=== PATIENT | male | born 1970 | race Caucasian/White ===

== ENCOUNTER 2017-12-23 03:45 | Inpatient (IN) | payer OTHER, SELFPAY ==
[2017-12-23] VITALS (17 sets, daily range): BP systolic 111–147; BP diastolic 62–85; PULSE 76–122; RESP 16–26; TEMP 37.4–40.4; O2SAT 92–100; BMI 20.6; BMI 20.4
--- NOTE | 2017-12-23 04:11 | CT_ITS ---
STUDY: CT ABDOMEN AND PELVIS WITHOUT CONTRAST REASON FOR EXAM: Male, 47 years old. Fever RADIATION DOSAGE (If Supplied By Facility): CTDIvol = ( 6.10 ) mGy, DLP = ( 300.26 ) mGycm TECHNIQUE: Transaxial images were obtained from the dome of the diaphragm to the symphysis pubis without oral contrast, and without intravenous contrast. Sagittal and coronal images were reconstructed. Individualized dose optimization techniques were used for this CT. COMPARISON: None. FINDINGS: The visualized lung bases are unremarkable. The visualized portions of the heart are within normal limits. Normal liver. Normal gallbladder and extrahepatic biliary system. Normal spleen. Normal pancreas. Normal bilateral adrenal glands. Normal right kidney. There is a 4 cm cyst in the midpole of the LEFT kidney. There are NO kidney stones or ureteral stones. There is NO hydronephrosis. Normal visualized stomach. Normal small intestine. Normal colon. The appendix is visualized and appears normal. Normal abdominal aorta. Normal inferior vena cava. Normal retroperitoneum. Normal urinary bladder. There are tiny phleboliths in the pelvis. There is NO ascites or free air, abscess or adenopathy. Normal abdominal wall. Normal osseous structures. CT/Abdomen/Pelvis without Cont IMPRESSION: There is a 4 cm cyst in the midpole of the LEFT kidney. There are NO kidney stones or ureteral stones. There is NO hydronephrosis. Normal visualized stomach. Normal small intestine. Normal colon. The appendix is visualized and appears normal. There are tiny phleboliths in the pelvis. There is NO ascites or free air, abscess or adenopathy. Electronically Signed: Jayy Baxter MD at 5:33 EST , Service support ,
[2017-12-23] MEDS: Ibuprofen 200 MG Tablet 400 MG PO (04:15)
[2017-12-23] MEDS: 0.9% Normal Saline 1,000 ML 1000 ML IV (04:16)
[2017-12-23 04:33] LABS: Anion Gap 7 (5-15); BUN 18 mg/dL (7-18); BUN/Creat Ratio 22.7 RATIO (10-20); Calcium,Total 8.5 mg/dL (8.5-10.1); Chloride 103 mmol/L (98-107); Creatinine, Serum 0.79 mg/dL (0.70-1.30); EST Glomerular Filtration Rate 110 mL/min (>60); Est Glom Filt Rate - Afr Amer 133 mL/min (>60); Estimated Creatinine Clearance 119.99 ml/min; Glucose 112 mg/dL (74-106); Potassium 3.6 mmol/L (3.5-5.1); Sodium Level 137 mmol/L (136-145)
[2017-12-23 04:34] LABS: Bacteria 0 SEEN /hpf (None Seen); Mucous, Urine 0 SEEN /hpf (<or=2+); Squamous Epithelial Cells - UA 0 SEEN /hpf (0-5)
[2017-12-23 04:36] LABS: Color, Urine Amber (Yellow); Glucose, Dipstick Normal (Normal); Leukocyte Esterase-Dipstick 500 /ul (Negative); Nitrite-Dipstick Negative (Negative); Occult Blood-Urine 25 /ul (Negative); Protein-Dipstick 30 mg/dl (Negative); Specific Gravity, Urine 1.015 (1.002-1.030); Urine Clarity Sl. Cloudy (Clear); Urine Urobilinogen 4 mg/dl (Normal); Urine pH 6.5 (5.0 - 8.0)
[2017-12-23 04:40] LABS: Lactic Acid 0.7 mmol/L (0.4-2.0)
[2017-12-23 04:41] LABS: Absolute Lymphocyte Count 0.26 X10^3/ul (0.83-4.51); Absolute Neutrophil Count 8.8 X10^3/uL (2.0-7.7); Basophil# 0.02 X10^3/uL; Basophil% 0.2 % (0-1); Hematocrit 43.8 % (40-54); Hemoglobin 14.2 g/dl (13.0-16.5); Lymphocyte # 0.26 X10^3/ul (4.0); Lymphocyte % 2.8 % (19-41); Mean Corp Hgb Conc 32.4 g/gl (32-36); Mean Corpuscular Hgb 27.8 pg (27.0-32.0); Mean Corpuscular Volume 85.7 fL (80-94); Mean Platelet Vol. 11.9 fl (6.2-12.0); Monocyte# 0.26 X10^3/uL; Monocyte% 2.8 % (0-10); Neutrophil # 8.76 X10^3/uL (2.7-7.7); Neutrophil % 94.2 % (47-70); Platelet Count 98 K/mm3 (150-450); RBC Distribution Width CV 13.3 % (11.6-14.6); RBC Distribution Width SD 40.8 fl (35.1-43.9); Red Blood Count 5.11 M/mm3 (4.6-6.2); White Blood Count 9.3 K/mm3 (4.4-11.0)
[2017-12-23 04:43] LABS: Differential Indicated SCAN CRITERIA MET; POSITIVE COUNT NO; POSITIVE DIFFERENTIAL YES; POSITIVE MORPHOLOGY NO
[2017-12-23 04:43] LABS: Urine Bilirubin Dipstick 1 mg/dL (Negative)
[2017-12-23 04:44] LABS: Ketone-Dipstick 150 mg/dl (Negative); Red Blood Cells-Urine 0-5 SEEN /hpf (0-5); White Blood Cells 25-50 SEEN /hpf (0-5)
--- NOTE | 2017-12-23 05:53 | ED.VISSUMM ---
- ER Visit Summary Date of Service: 12/23/17 Chief Complaint: Possible kidney infection History of Present Illness: The patient is a 47 M who reports abdominal pain nausea and vomiting. He became ill yesterday. He noticed urinary urgency and frequency. He also developed aching lower back pain and some very mild left lower quadrant abdominal pain which is sharp. He rates this as 1-2 out of 10. Overnight he developed a temperature up to 104.1. He also complains of generalized malaise and fatigue. He complains of a headache but does have a history of migraines and this feels similar. He had 2 episodes of nonbloody nonbilious emesis last night. Physical Examination: Heart rate 111 temperature 103.5 respiratory rate 22 pulse ox 93% Moist mucous membranes Heart regular rhythm tachycardia Lungs are clear Abdomen soft there is no reproducible tenderness he is nondistended Alert Test Results: Laboratory studies notable for platelet count 98 lactic acid is normal. No leukocytosis. Urine shows 500 leukocyte esterase 150 ketones 25-[address] of the flank shows a 4 cm left renal cyst but otherwise normal. Emergency Department Course and Treatment: She was given ibuprofen for fever and IV fluids. He was given IV Zosyn. Given high fever tachycardia vomiting I do believe he has pyelonephritis. Blood and urine cultures were also obtained. Patient was discussed with the hospitalist and admitted. Treatment Plan: [] Disposition: Admit Impression: Pyelonephritis This note was generated with [employer] dictation software. It may contain incorrect words, spelling, and punctuation that were not noted in review of the chart prior to signing ED Disposition - Plan for ED Patient: Chief Complaint: Abd Pain Referrals: Kai Sherman MD [Primary Care Provider] -
--- NOTE | 2017-12-23 06:07 | HP.PCM_ITS ---
Problem List (1) Sepsis Status: Acute (2) Acute cystitis Status: Acute History of Present Illness Date of Admission: 12/23/17 Chief Complaint: Suprapubic abdominal pain, frequency and fever. The patient is a 47 year old M with no significant past medical history presented to the emergency room because of suprapubic abdominal pain, frequency and fever. Symptoms started yesterday with frequency associated with weakness and fever of up to 104 Fahrenheit as well as rigors and chills. Today, he started complaining of suprapubic abdominal pain, dull aching pain, 2-3 out of 10 in severity, not radiating, associated with nausea and vomiting as well as continued to have significant frequency and dark colored urine and without aggravating or relieving factors for this pain. He denies chest pain or shortness of breath. Denied cough or sputum production. He denied past history of UTI or kidney stones. In the emergency room, patient was febrile, tachycardic, blood pressure stable and heart rate stable as well. His pulse ox was normal and he was tachypneic. His routine blood work was unremarkable. Lactic acid was normal. Urinalysis revealed cloudy urine, positive for leukocyte esterase, there was 25-50 WBCs and no bacteria seen. CT scan abdomen and pelvis without contrast revealed left kidney cyst, no stones, no hydronephrosis, normal right kidney, normal intestine, normal colon, normal appendix, no acute intra-abdominal pathology. He is being admitted for acute cystitis with sepsis. Past Medical History Allergies No Known Allergies Allergy (Verified 12/23/17 03:50) Home Medications: Ambulatory Orders Medication Instructions Recorded NK [NK] 12/23/17 Surgical History: herniorrhaphy Psychiatric History: No pertinent psych hx Lives: Spouse/ Significant Other Smoking Status: Never smoker Alcohol: None Drugs: None - *Family History Maternal History Items: No pertinent history Paternal History Items: No pertinent history Review of Systems Constitutional: Reports: Anorexia, Chills, Fever, Weakness, Fatigue Eyes: Denies: Blurred vision, Double vision, Drainage, Redness HEENT: Denies: Difficulty Hearing, Ear Pain, Eye Pain, Nasal Congestion, Sore Throat Cardiovascular: Denies: Chest Pain, Chest Pressure, Edema, Heaviness, Palpitations, Syncope Respiratory: Denies: Cough, Hemoptysis, Pleuritic Pain, Shortness of Breath, Sputum production Gastrointestinal: Reports: Abdominal Pain, Nausea, Vomiting. Denies: Constipation, Diarrhea Genitourinary: Reports: Frequency, Urgency. Denies: Dysuria, Hematuria Musculoskeletal: Denies: Arm Pain, Back Pain, Foot Pain Skin: Denies: Dryness, Rash Neurological: Denies: Balance problems, Double vision, Change in Speech, Slurred speech, Headaches, Incoordination, Numbness Psychiatric: Denies: Anxiety, Depression Endocrine: Denies: Change in Body Habitus, Polydipsia VTE Information - Inpt Only VTE Present on Admission: No VTE Mechan Device Prophylaxis: None VTE Pharm Prophylaxis ordered?: No Patient Problems: Active and Suspected Problems Sepsis (Acute) Acute cystitis (Acute) - Physical Exam General: Alert, Oriented x3, Cooperative, No apparent distress HEENT: Atraumatic, PERRLA, EOMI Oral: Moist Mucosa, No Gingival or Mucosal Lesions/ Ulcerations Neck: Supple, No JVD, Negative Carotid Bruits, Trachea Midline, Thyroid Normal Size and Texture Lungs: Clear to auscultation, Normal air movement, No rhonchi, No wheeze, No rales Cardiovascular: Regular rate, Regular Rhythm, Normal S1, Normal S2, No murmurs, PMI Normal, Tachycardic Abdomen: Bowel Sounds Present, Soft, Non Tender, Non-Distended, No Hepato- splenomegaly Extremities: No clubbing, No cyanosis, No edema Skin: No rashes, No breakdown Lymphatic: No Cervical, Supraclavicular, or Inguinal Adenopathy Neurological: Cranial nerves II-XII grossly intact, Motor Exam 5/5 strength throughout Psych/Mental Status: Normal Affect, Appropriate, Alert and oriented to time, place, person, mood and affect Vital Signs Temp Pulse Resp BP Pulse Ox 100.2 F H 101 H 21 H 115/83 H 95 12/23/17 05:29 12/23/17 05:29 12/23/17 05:29 12/23/17 05:29 12/23/17 05:29 Oxygen Delivery Method Room Air Weight: 165 lb 5.547 oz Body Mass Index (BMI) 20.6 Laboratory Tests Past 24 Hrs 12/23/17 12/23/17 12/23/17 03:50 03:50 03:50 WBC 9.3 RBC 5.11 Hgb 14.2 Hct 43.8 MCV 85.7 MCH 27.8 MCHC 32.4 RDW 13.3 RDW Differential 40.8 Plt Count 98 L MPV 11.9 Immature Gran % (Auto) 0.000 Neut % (Auto) 94.2 H Lymph % (Auto) 2.8 L [place] % (Auto) 2.8 Eos % (Auto) 0.0 Baso % (Auto) 0.2 Absolute Neuts (auto) 8.8 H Absolute Lymphs (auto) 0.26 L Total Counted Not Reportable Sodium 137 Potassium 3.6 Chloride 103 Carbon Dioxide 27.0 Anion Gap 7 BUN 18 Creatinine 0.79 Estim Creat Clear Calc 119.99 Est GFR (MDRD) Af Amer 133 Est GFR (MDRD) Non-Af 110 BUN/Creatinine Ratio 22.7 H Glucose 112 H Lactic Acid 0.7 Calcium 8.5 Urine Color Urine Clarity Urine pH Ur Specific [place] Urine Protein Urine Glucose (UA) Urine Ketones Urine Occult Blood Urine Nitrite Urine Bilirubin Urine Urobilinogen Ur Leukocyte Esterase Urine RBC Urine WBC Ur Squamous Epith Cells Urine Bacteria Urine Mucus 12/23/17 04:29 WBC RBC Hgb Hct MCV MCH MCHC RDW RDW Differential Plt Count MPV Immature Gran % (Auto) Neut % (Auto) Lymph % (Auto) [place] % (Auto) Eos % (Auto) Baso % (Auto) Absolute Neuts (auto) Absolute Lymphs (auto) Total Counted Sodium Potassium Chloride Carbon Dioxide Anion Gap BUN Creatinine Estim Creat Clear Calc Est GFR (MDRD) Af Amer Est GFR (MDRD) Non-Af BUN/Creatinine Ratio Glucose Lactic Acid Calcium Urine Color [place] Urine Clarity Sl. Cloudy Urine pH 6.5 Ur Specific [place] 1.015 Urine Protein 30 H Urine Glucose (UA) Normal Urine Ketones 150 H Urine Occult Blood 25 H Urine Nitrite Negative Urine Bilirubin 1 H Urine Urobilinogen 4 H Ur Leukocyte Esterase 500 H Urine RBC 0-5 SEEN Urine WBC 25-50 SEEN Ur Squamous Epith Cells 0 SEEN Urine Bacteria 0 SEEN Urine Mucus 0 SEEN Clinical Impression(s) from Imaging Studies Abdomen/Pelvis CT 12/23/17 04:11 IMPRESSION: There is a 4 cm cyst in the midpole of the LEFT kidney. There are NO kidney stones or ureteral stones. There is NO hydronephrosis. Normal visualized stomach. Normal small intestine. Normal colon. The appendix is visualized and appears normal. There are tiny phleboliths in the pelvis. There is NO ascites or free air, abscess or adenopathy. Electronically Signed: Jayy Baxter MD at 5:33 EST , Service support , Assessment/Plan Active and Suspected Problems Sepsis (Acute) Acute cystitis (Acute) This is a 47 years old male patient admitted because of frequency, weakness, fever and suprapubic abdominal pain, found to have acute cystitis with sepsis. #1 acute cystitis/sepsis: Patient is febrile, tachycardic and tachypneic. Lactic acid is normal. At this time, blood pressure on the hospital stable. Routine blood work was unremarkable. CT scan abdomen and pelvis revealed left renal cyst, otherwise no acute intra-abdominal pathology. Plan: Admit to MedSurg, IV fluids, start IV Zosyn, blood culture, urine culture, Tylenol as needed, antiemetics as needed, repeat CBC and BMP tomorrow morning. At this time, bacteremia is a possible diagnosis because patient complained of significant right present chills. #2 DVT prophylaxis: Low risk patient, no prophylaxis indicated. This note was generated with [employer] dictation software. It may contain incorrect words, spelling, and punctuation that were not noted in checking the note before signing. Code Visit Inpatient E&M: 96633 Init Hosp L3
[2017-12-23] MEDS: 0.9% Normal Saline 1,000 ML 100 ML IV ×2 (06:30→16:35)
--- NOTE | 2017-12-23 09:12 | PCM.PN.HOSP ---
Patient Problems: Active and Suspected Problems Sepsis (Acute) Acute cystitis (Acute) Subjective: Feeling better. Does complain of a headache. States that he gets headaches every few months and this feels like his typical migraine. Patient does endorse a drinks around 24 ounces of coffee per day. Patient denies ever having had a urinary tract infection before, denies any flank pain, denies any sexually transmitted diseases. It is his urinary frequency is slightly improved and his urine output has improved since this all began. Denies, when he is feeling healthy, nocturia or frequency. Vitals/I&O's: Vital Signs Temp Pulse Resp BP Pulse Ox 37.4 C H 76 16 135/81 H 99 12/23/17 07:02 12/23/17 07:02 12/23/17 07:02 12/23/17 07:02 12/23/17 07:02 Oxygen Delivery Method Room Air Weight: 74.2 kg Body Mass Index (BMI) 20.4 General: Alert, Cooperative, No apparent distress HEENT: Atraumatic Oral: Moist Mucosa, No Gingival or Mucosal Lesions/ Ulcerations Neck: No Nodes, Thyroid Normal Size and Texture, - - no meningismus Lungs: Clear to auscultation, Normal air movement, No rhonchi, No wheeze Cardiovascular: Regular rate, Regular Rhythm, Normal S1, Normal S2, No murmurs Abdomen: Bowel Sounds Present, Soft, Non Tender, Non-Distended, No Hepato-splenomegaly, - - No costovertebral angle tenderness Extremities: No edema, No Calf Tenderness Psych/Mental Status: Normal Affect, Appropriate Current Medications Acetaminophen (Tylenol) 650 mg PO Q6H PRN PRN PRN Reason: Fever, headache, pain Ciprofloxacin HCl (Cipro) 500 mg PO BID [facility] Sodium Chloride () 1,000 mls @ 100 mls/hr IV .Q10H [facility] Last Admin: 12/23/17 06:30 Dose: 100 mls/hr Ibuprofen (Motrin) 600 mg PO Q6H PRN PRN PRN Reason: MILD PAIN (1-3/10) Morphine Sulfate (Morphine) 1 mg IV Q4H PRN PRN PRN Reason: SEVERE PAIN (6-10/10) Ondansetron HCl (Zofran) 4 mg IV Q6H PRN PRN PRN Reason: NAUSEA/VOMITING Sodium Chloride () 5 - 30 ml IV UD PRN PRN Reason: SALINE FLUSH Assessment/Plan Active and Suspected Problems Sepsis (Acute) Acute cystitis (Acute) 1. UTI: Patient never had a UTI before. Patient urinalysis was equivocal but patient was clinically septic with high fevers. Minute discontinue the patient Zosyn and start him on oral ciprofloxacin. Patient does well then I feel patient can be discharged later on today. Code Visit Procedures: Other Procedure - See Report - non-billable rounding.
--- NOTE | 2017-12-23 09:15 | PN_ITS ---
Patient Problems: Active and Suspected Problems Sepsis (Acute) Acute cystitis (Acute) Subjective: Feeling better. Does complain of a headache. States that he gets headaches every few months and this feels like his typical migraine. Patient does endorse a drinks around 24 ounces of coffee per day. Patient denies ever having had a urinary tract infection before, denies any flank pain, denies any sexually transmitted diseases. It is his urinary frequency is slightly improved and his urine output has improved since this all began. Denies, when he is feeling healthy, nocturia or frequency. Vitals/I&O's: Vital Signs Temp Pulse Resp BP Pulse Ox 37.4 C H 76 16 135/81 H 99 12/23/17 07:02 12/23/17 07:02 12/23/17 07:02 12/23/17 07:02 12/23/17 07:02 Oxygen Delivery Method Room Air Weight: 74.2 kg Body Mass Index (BMI) 20.4 General: Alert, Cooperative, No apparent distress HEENT: Atraumatic Oral: Moist Mucosa, No Gingival or Mucosal Lesions/ Ulcerations Neck: No Nodes, Thyroid Normal Size and Texture, - - no meningismus Lungs: Clear to auscultation, Normal air movement, No rhonchi, No wheeze Cardiovascular: Regular rate, Regular Rhythm, Normal S1, Normal S2, No murmurs Abdomen: Bowel Sounds Present, Soft, Non Tender, Non-Distended, No Hepato- splenomegaly, - - No costovertebral angle tenderness Extremities: No edema, No Calf Tenderness Psych/Mental Status: Normal Affect, Appropriate Current Medications Acetaminophen (Tylenol) 650 mg PO Q6H PRN PRN PRN Reason: Fever, headache, pain Ciprofloxacin HCl (Cipro) 500 mg PO BID [facility] Sodium Chloride () 1,000 mls @ 100 mls/hr IV .Q10H [facility] Last Admin: 12/23/17 06:30 Dose: 100 mls/hr Ibuprofen (Motrin) 600 mg PO Q6H PRN PRN PRN Reason: MILD PAIN (1-3/10) Morphine Sulfate (Morphine) 1 mg IV Q4H PRN PRN PRN Reason: SEVERE PAIN (6-10/10) Ondansetron HCl (Zofran) 4 mg IV Q6H PRN PRN PRN Reason: NAUSEA/VOMITING Sodium Chloride () 5 - 30 ml IV UD PRN PRN Reason: SALINE FLUSH Assessment/Plan Active and Suspected Problems Sepsis (Acute) Acute cystitis (Acute) 1. UTI: * Patient never had a UTI before. Patient urinalysis was equivocal but patient was clinically septic with high fevers. Minute discontinue the patient Zosyn and start him on oral ciprofloxacin. Patient does well then I feel patient can be discharged later on today. Code Visit Procedures: Other Procedure - See Report - non-billable rounding.
[2017-12-23] MEDS: Ciprofloxacin 500 MG Tablet PO (11:22)
[2017-12-23] MEDS: Ibuprofen 600 MG Tablet PO ×2 (11:29→17:37)
[2017-12-23] MEDS: Acetaminophen 325 MG Tablet 650 MG PO ×2 (13:30→19:31)
[2017-12-23] MEDS: Ciprofloxacin 400 MG/200 ML BAG 200 MG IV (21:29)
[2017-12-24] VITALS (10 sets, daily range): BP systolic 111–148; BP diastolic 54–88; PULSE 75–87; RESP 14–18; TEMP 36.7–37.9; O2SAT 98–100
[2017-12-24] MEDS: 0.9% Normal Saline 1,000 ML 100 ML IV ×2 (02:58→14:45)
[2017-12-24] MEDS: Acetaminophen 325 MG Tablet 650 MG PO ×3 (02:59→17:11)
[2017-12-24 07:02] LABS: Absolute Lymphocyte Count 0.28 X10^3/ul (0.83-4.51); Absolute Neutrophil Count 5.6 X10^3/uL (2.0-7.7); Basophil# 0.01 X10^3/uL; Basophil% 0.2 % (0-1); Hematocrit 38.3 % (40-54); Hemoglobin 12.2 g/dl (13.0-16.5); Lymphocyte # 0.28 X10^3/ul (4.0); Lymphocyte % 4.4 % (19-41); Mean Corp Hgb Conc 31.9 g/gl (32-36); Mean Corpuscular Hgb 27.7 pg (27.0-32.0); Mean Platelet Vol. 11.7 fl (6.2-12.0); Monocyte# 0.38 X10^3/uL; Neutrophil # 5.63 X10^3/uL (2.7-7.7); Neutrophil % 89.2 % (47-70); Platelet Count 64 K/mm3 (150-450); RBC Distribution Width CV 13.4 % (11.6-14.6); White Blood Count 6.3 K/mm3 (4.4-11.0)
[2017-12-24 07:12] LABS: Anion Gap 6 (5-15); BUN 14 mg/dL (7-18); BUN/Creat Ratio 23.8 RATIO (10-20); Calcium,Total 7.6 mg/dL (8.5-10.1); Chloride 105 mmol/L (98-107); Creatinine, Serum 0.59 mg/dL (0.70-1.30); EST Glomerular Filtration Rate 156 mL/min (>60); Est Glom Filt Rate - Afr Amer 188 mL/min (>60); Estimated Creatinine Clearance 158.95 ml/min; Glucose 143 mg/dL (74-106); Potassium 3.6 mmol/L (3.5-5.1); Sodium Level 137 mmol/L (136-145)
[2017-12-24 07:14] LABS: Differential Indicated SCAN CRITERIA MET; POSITIVE COUNT NO; POSITIVE DIFFERENTIAL YES; POSITIVE MORPHOLOGY NO
[2017-12-24] MEDS: Ciprofloxacin 400 MG/200 ML BAG 200 MG IV ×2 (09:03→21:05)
--- NOTE | 2017-12-24 09:05 | PCM.PN.HOSP ---
Patient Problems: Active and Suspected Problems Sepsis (Acute) Acute cystitis (Acute) Subjective: Still with fevers yesterday up to 40?C. Patient states that his dysuria has resolved and is urinary stream has returned back to normal. No shortness of breath, no sinus congestion. Vitals/I&O's: Vital Signs Temp Pulse Resp BP Pulse Ox 37.3 C 80 14 111/54 L 99 12/24/17 02:54 12/24/17 08:07 12/24/17 02:54 12/24/17 02:54 12/24/17 02:54 Oxygen Delivery Method Room Air Weight: 74.2 kg Body Mass Index (BMI) 20.4 Intake and Output for Last 24 Hours 12/22/17 12/23/17 12/24/17 23:59 23:59 23:59 Intake Total 3265 / 3265 Output Total 525 / 525 Balance 2740 / 2740 General: Alert, Cooperative, No apparent distress, Well developed, Well nourished HEENT: Atraumatic, Normocephalic Neck: No Nodes, Thyroid Normal Size and Texture Lungs: Clear to auscultation, Normal air movement, No rhonchi, No wheeze Cardiovascular: Regular rate, Regular Rhythm, Normal S1, Normal S2, No murmurs Abdomen: Bowel Sounds Present, Soft, Non Tender, Non-Distended, No Hepato-splenomegaly Extremities: No edema, No Calf Tenderness Skin: No rashes, No breakdown Musculoskeletal: No Tenderness to Palpation of Joints or Extremities, No Muscle Wasting Psych/Mental Status: Normal Affect, Appropriate Laboratory Results 12/24/17 06:20: WBC 6.3, RBC 4.40 L, Hgb 12.2 L, Hct 38.3 L, MCV 87.0, MCH 27.7, MCHC 31.9 L, RDW 13.4, RDW Differential 43.0, Plt Count 64 L, MPV 11.7, Immature Gran % (Auto) 0.200, Neut % (Auto) 89.2 H, Lymph % (Auto) 4.4 L, [place] % (Auto) 6.0, Eos % (Auto) 0.0, Baso % (Auto) 0.2, Absolute Neuts (auto) 5.6, Absolute Lymphs (auto) 0.28 L, Total Counted Not Reportable 12/24/17 06:20: Sodium 137, Potassium 3.6, Chloride 105, Carbon Dioxide 26.0, Anion Gap 6, BUN 14, Creatinine 0.59 L, Estim Creat Clear Calc 158.95, Est GFR (MDRD) Af Amer 188, Est GFR (MDRD) Non-Af 156, BUN/Creatinine Ratio 23.8 H, Glucose 143 H, Calcium 7.6 L Current Medications Acetaminophen (Tylenol) 650 mg PO Q6H PRN PRN PRN Reason: Fever, headache, pain Last Admin: 12/24/17 09:02 Dose: 650 mg Sodium Chloride () 1,000 mls @ 100 mls/hr IV .Q10H [facility] Last Admin: 12/24/17 02:58 Dose: 100 mls/hr Ciprofloxacin (Cipro) 400 mg in 200 mls @ 200 mls/hr IV Q12 [facility] Last Admin: 12/24/17 09:03 Dose: 200 mls/hr Ibuprofen (Motrin) 600 mg PO Q6H PRN PRN PRN Reason: MILD PAIN (1-3/10) Last Admin: 12/23/17 17:37 Dose: 600 mg Morphine Sulfate (Morphine) 1 mg IV Q4H PRN PRN PRN Reason: SEVERE PAIN (6-10/10) Ondansetron HCl (Zofran) 4 mg IV Q6H PRN PRN PRN Reason: NAUSEA/VOMITING Sodium Chloride () 5 - 30 ml IV UD PRN PRN Reason: SALINE FLUSH Assessment/Plan Active and Suspected Problems Sepsis (Acute) Acute cystitis (Acute) 1. UTI: Patient never had a UTI before. Patient urinalysis was equivocal but patient was clinically septic with high fevers. Continue with Cipro 2. Fevers Still had a fevers yesterday after antibiotics. Blood and urine cultures still negative thus far. Given his high fevers, I will consult infectious disease for further input. 3. DVT prophylaxis with low molecular weight heparin. Code Visit Inpatient E&M: 58429 Subs Hosp L2
--- NOTE | 2017-12-24 09:09 | PN_ITS ---
Patient Problems: Active and Suspected Problems Sepsis (Acute) Acute cystitis (Acute) Subjective: Still with fevers yesterday up to 40?C. Patient states that his dysuria has resolved and is urinary stream has returned back to normal. No shortness of breath, no sinus congestion. Vitals/I&O's: Vital Signs Temp Pulse Resp BP Pulse Ox 37.3 C 80 14 111/54 L 99 12/24/17 02:54 12/24/17 08:07 12/24/17 02:54 12/24/17 02:54 12/24/17 02:54 Oxygen Delivery Method Room Air Weight: 74.2 kg Body Mass Index (BMI) 20.4 Intake and Output for Last 24 Hours 12/22/17 12/23/17 12/24/17 23:59 23:59 23:59 Intake Total 3265 / 3265 Output Total 525 / 525 Balance 2740 / 2740 General: Alert, Cooperative, No apparent distress, Well developed, Well nourished HEENT: Atraumatic, Normocephalic Neck: No Nodes, Thyroid Normal Size and Texture Lungs: Clear to auscultation, Normal air movement, No rhonchi, No wheeze Cardiovascular: Regular rate, Regular Rhythm, Normal S1, Normal S2, No murmurs Abdomen: Bowel Sounds Present, Soft, Non Tender, Non-Distended, No Hepato- splenomegaly Extremities: No edema, No Calf Tenderness Skin: No rashes, No breakdown Musculoskeletal: No Tenderness to Palpation of Joints or Extremities, No Muscle Wasting Psych/Mental Status: Normal Affect, Appropriate Laboratory Results 12/24/17 06:20: WBC 6.3, RBC 4.40 L, Hgb 12.2 L, Hct 38.3 L, MCV 87.0, MCH 27.7 , MCHC 31.9 L, RDW 13.4, RDW Differential 43.0, Plt Count 64 L, MPV 11.7, Immature Gran % (Auto) 0.200, Neut % (Auto) 89.2 H, Lymph % (Auto) 4.4 L, [place] % (Auto) 6.0, Eos % (Auto) 0.0, Baso % (Auto) 0.2, Absolute Neuts (auto) 5.6, Absolute Lymphs (auto) 0.28 L, Total Counted Not Reportable 12/24/17 06:20: Sodium 137, Potassium 3.6, Chloride 105, Carbon Dioxide 26.0, Anion Gap 6, BUN 14, Creatinine 0.59 L, Estim Creat Clear Calc 158.95, Est GFR ( MDRD) Af Amer 188, Est GFR (MDRD) Non-Af 156, BUN/Creatinine Ratio 23.8 H, Glucose 143 H, Calcium 7.6 L Current Medications Acetaminophen (Tylenol) 650 mg PO Q6H PRN PRN PRN Reason: Fever, headache, pain Last Admin: 12/24/17 09:02 Dose: 650 mg Sodium Chloride () 1,000 mls @ 100 mls/hr IV .Q10H [facility] Last Admin: 12/24/17 02:58 Dose: 100 mls/hr Ciprofloxacin (Cipro) 400 mg in 200 mls @ 200 mls/hr IV Q12 [facility] Last Admin: 12/24/17 09:03 Dose: 200 mls/hr Ibuprofen (Motrin) 600 mg PO Q6H PRN PRN PRN Reason: MILD PAIN (1-3/10) Last Admin: 12/23/17 17:37 Dose: 600 mg Morphine Sulfate (Morphine) 1 mg IV Q4H PRN PRN PRN Reason: SEVERE PAIN (6-10/10) Ondansetron HCl (Zofran) 4 mg IV Q6H PRN PRN PRN Reason: NAUSEA/VOMITING Sodium Chloride () 5 - 30 ml IV UD PRN PRN Reason: SALINE FLUSH Assessment/Plan Active and Suspected Problems Sepsis (Acute) Acute cystitis (Acute) 1. UTI: * Patient never had a UTI before. Patient urinalysis was equivocal but patient was clinically septic with high fevers. * Continue with Cipro 2. Fevers * Still had a fevers yesterday after antibiotics. * Blood and urine cultures still negative thus far. * Given his high fevers, I will consult infectious disease for further input. 3. DVT prophylaxis with low molecular weight heparin. Code Visit Inpatient E&M: 56705 Subs Hosp L2
--- NOTE | 2017-12-24 13:11 | CASEMGMT ---
See RN CM assessment. DC PLAN: home
--- NOTE | 2017-12-24 14:32 | CON.PCM_ITS ---
Problem List (1) Bacteremia due to Gram-negative bacteria Status: Acute Reason for Consult: (+) bcx Consulted by: Dr. Simpson History of Present Illness: The patient is a 47 year old M who presented 12/23 with one day history of urinary frequency, dysuria, nausea, back pain, and fever/chills/shakes. Sx 1st started with increased frequency. No prior UTI or kidney stones. No known inciting events. Did have poison devang last week and did get it on his genitals, but that is nearly resolved. Sx rapidly progressed, came to ED, bcx and ucx sent. Started on cipro. Fever up to 103.5. Feeling better now. Full ROS performed and neg except as noted above. - Medical History Allergies/Adverse Reactions: Allergies No Known Allergies Allergy (Verified 12/23/17 03:50) Home Medications: Ambulatory Orders Medication Instructions Recorded NK [NK] 12/23/17 - Social History Tobacco Use: non-smoker Vital Signs Temp Pulse Resp BP Pulse Ox 99.1 F 84 18 121/74 H 98 12/24/17 09:05 12/24/17 13:07 12/24/17 09:05 12/24/17 09:05 12/24/17 09:05 Oxygen Delivery Method Room Air Weight: 74.2 kg Body Mass Index (BMI) 20.4 Laboratory Tests Past 24 Hrs 12/24/17 12/24/17 06:20 06:20 WBC 6.3 RBC 4.40 L Hgb 12.2 L Hct 38.3 L MCV 87.0 MCH 27.7 MCHC 31.9 L RDW 13.4 RDW Differential 43.0 Plt Count 64 L MPV 11.7 Immature Gran % (Auto) 0.200 Neut % (Auto) 89.2 H Lymph % (Auto) 4.4 L [place] % (Auto) 6.0 Eos % (Auto) 0.0 Baso % (Auto) 0.2 Absolute Neuts (auto) 5.6 Absolute Lymphs (auto) 0.28 L Total Counted Not Reportable Sodium 137 Potassium 3.6 Chloride 105 Carbon Dioxide 26.0 Anion Gap 6 BUN 14 Creatinine 0.59 L Estim Creat Clear Calc 158.95 Est GFR (MDRD) Af Amer 188 Est GFR (MDRD) Non-Af 156 BUN/Creatinine Ratio 23.8 H Glucose 143 H Calcium 7.6 L - Other Studies Radiology: [] reviewed Other Studies: [] Route of nutrition/ use of supplements: [] Nutritional Intake: [] IV Site: [] Borjas Catheter: [] - Physical Exam General: Alert, Oriented x3, Cooperative, No apparent distress HEENT: Atraumatic, PERRLA, EOMI Neck: Supple, No Nodes Lungs: Clear to auscultation, Normal air movement Cardiovascular: Regular rate, Regular Rhythm, No murmurs Abdomen: Bowel Sounds Present, Soft, Non Tender, Non-Distended, - - no flank pain Extremities: No edema Skin: No rashes IV Site: Peripheral, without redness Musculoskeletal: No Tenderness to Palpation of Joints or Extremities Neurological: Cranial nerves II-XII grossly intact - Assessment/Plan Antibiotics: [] Assessment/Plan: [] Active and Suspected Problems Sepsis (Acute) Acute cystitis (Acute) GNR bacteremia due to ecoli-like pyelonephritis - Began with urinary symptoms, then spread systemically. No clear inciting event. CT did show 4cm cyst. Much improved on cipro. Will repeat bcx today to document clearance. If cxs are finalized as cipro-susceptible, plan will be for d/c home on po cipro 500mg bid with stop date 01/06/18. Thank you, will follow.
[2017-12-24] MEDS: Ibuprofen 600 MG Tablet PO (14:45)
[2017-12-25] VITALS (13 sets, daily range): BP systolic 117–135; BP diastolic 72–89; PULSE 62–92; RESP 15–18; TEMP 36.8–37.5; O2SAT 97–100
[2017-12-25] MEDS: 0.9% Normal Saline 1,000 ML 100 ML IV ×2 (01:26→14:16)
[2017-12-25] MEDS: Ibuprofen 600 MG Tablet PO ×2 (05:35→11:49)
[2017-12-25 08:31] LABS: Absolute Lymphocyte Count 0.39 X10^3/ul (0.83-4.51); Absolute Neutrophil Count 2.7 X10^3/uL (2.0-7.7); Basophil# 0.01 X10^3/uL; Basophil% 0.3 % (0-1); Eosinophil# 0.07 X10^3/uL; Hematocrit 37.3 % (40-54); Lymphocyte # 0.39 X10^3/ul (4.0); Lymphocyte % 10.9 % (19-41); Mean Corp Hgb Conc 32.2 g/gl (32-36); Mean Corpuscular Hgb 27.8 pg (27.0-32.0); Mean Corpuscular Volume 86.5 fL (80-94); Mean Platelet Vol. 12.1 fl (6.2-12.0); Monocyte# 0.35 X10^3/uL; Monocyte% 9.8 % (0-10); Neutrophil # 2.74 X10^3/uL (2.7-7.7); Neutrophil % 76.7 % (47-70); Platelet Count 86 K/mm3 (150-450); RBC Distribution Width CV 13.5 % (11.6-14.6); RBC Distribution Width SD 42.9 fl (35.1-43.9); Red Blood Count 4.31 M/mm3 (4.6-6.2); White Blood Count 3.6 K/mm3 (4.4-11.0)
[2017-12-25 08:39] LABS: ALB/GLOB Ratio 0.8 RATIO (0.9-2.4); AST(SGOT) 16 U/L (15-37); Alanine Aminotransfer ALT/SGPT 27 U/L (16-61); Albumin, Serum 2.5 g/dL (3.2-5.0); Alkaline Phosphatase 54 U/L (45-117); Anion Gap 8 (5-15); BUN 6 mg/dL (7-18); BUN/Creat Ratio 9.9 RATIO (10-20); Calcium,Total 7.7 mg/dL (8.5-10.1); Chloride 107 mmol/L (98-107); Creatinine, Serum 0.61 mg/dL (0.70-1.30); EST Glomerular Filtration Rate 150 mL/min (>60); Est Glom Filt Rate - Afr Amer 182 mL/min (>60); Estimated Creatinine Clearance 153.74 ml/min; Globulin 3.1 g/dL (2.2-4.2); Glucose 149 mg/dL (74-106); Potassium 3.5 mmol/L (3.5-5.1); Protein, Total 5.6 g/dL (6.4-8.2); Sodium Level 139 mmol/L (136-145)
[2017-12-25 08:42] LABS: Differential Indicated SCAN CRITERIA MET; POSITIVE COUNT NO; POSITIVE DIFFERENTIAL YES; POSITIVE MORPHOLOGY NO
[2017-12-25 08:52] LABS: Differential Comment SCANNED
--- NOTE | 2017-12-25 10:11 | PCM.PN.HOSP ---
Patient Problems: Active and Suspected Problems Bacteremia due to Gram-negative bacteria (Acute) Sepsis (Acute) Acute cystitis (Acute) Subjective: Seen and examined. He feels better today. Since of mild lower abdominal pain which he reason about 3/10. Fever has resolved and back pain is also resolved. Urinary symptoms have resolved and he denies any frequency of micturition now. Review of systems otherwise negative. Objective: For 7-year-old male who was admitted on December 23 with a 1 day history of urinary frequency, dysuria, nausea, back pain and fever and chills. He did not have any prior history of UTI or kidney stones. He is being managed for UTI and pyelonephritis and is on ciprofloxacin. ID is on board. Vitals/I&O's: Vital Signs Temp Pulse Resp BP Pulse Ox 98.5 F 69 16 117/82 H 98 12/25/17 08:20 12/25/17 08:20 12/25/17 08:20 12/25/17 08:20 12/25/17 08:20 Oxygen Delivery Method Room Air Weight: 163 lb 9.328 oz Body Mass Index (BMI) 20.4 Intake and Output for Last 24 Hours 12/23/17 12/24/17 12/25/17 23:59 23:59 23:59 Intake Total 6172 / 6172 1398 / 1398 Output Total 2250 / 2250 600 / 600 Balance 3922 / 3922 798 / 798 General: Alert, Oriented x3, Cooperative, No apparent distress HEENT: Atraumatic, PERRLA, EOMI, Normocephalic Oral: Moist Mucosa Neck: Supple, No JVD, Negative Carotid Bruits Lungs: Clear to auscultation, Normal air movement, No rhonchi, No wheeze, No rales Cardiovascular: Regular rate, Regular Rhythm, Normal S1, Normal S2, No murmurs Abdomen: Bowel Sounds Present, Soft, Non Tender, Non-Distended, - - No costoVertebral angle tenderness bilaterally. Had no lower abdominal tenderness on examination. Extremities: No clubbing, No cyanosis, No edema, Capillary Refill Less than 3 Seconds Skin: No rashes, No breakdown Musculoskeletal: No Tenderness to Palpation of Joints or Extremities Lymphatic: No Cervical, Supraclavicular, or Inguinal Adenopathy Neurological: Cranial nerves II-XII grossly intact, Motor Exam 5/5 strength throughout Psych/Mental Status: Normal Affect, Appropriate, Alert and oriented to time, place, person, mood and affect Laboratory Results 12/25/17 07:10: WBC 3.6 L, RBC 4.31 L, Hgb 12.0 L, Hct 37.3 L, MCV 86.5, MCH 27.8, MCHC 32.2, RDW 13.5, RDW Differential 42.9, Plt Count 86 L, MPV 12.1 H, Immature Gran % (Auto) 0.300, Neut % (Auto) 76.7 H, Lymph % (Auto) 10.9 L, [place] % (Auto) 9.8, Eos % (Auto) 2.0, Baso % (Auto) 0.3, Absolute Neuts (auto) 2.7, Absolute Lymphs (auto) 0.39 L, Total Counted Not Reportable, Differential Comment SCANNED 12/25/17 07:10: Sodium 139, Potassium 3.5, Chloride 107, Carbon Dioxide 24.0, Anion Gap 8, BUN 6 L, Creatinine 0.61 L, Estim Creat Clear Calc 153.74, Est GFR (MDRD) Af Amer 182, Est GFR (MDRD) Non-Af 150, BUN/Creatinine Ratio 9.9 L, Glucose 149 H, Calcium 7.7 L, Total Bilirubin 0.50, AST 16, ALT 27, Alkaline Phosphatase 54, Total Protein 5.6 L, Albumin 2.5 L, Globulin 3.1, Albumin/Globulin Ratio 0.8 L Current Medications Acetaminophen (Tylenol) 650 mg PO Q6H PRN PRN PRN Reason: Fever, headache, pain Last Admin: 12/24/17 17:11 Dose: 650 mg Sodium Chloride () 1,000 mls @ 100 mls/hr IV .Q10H LANDON Last Admin: 12/25/17 01:26 Dose: 100 mls/hr Ciprofloxacin (Cipro) 400 mg in 200 mls @ 200 mls/hr IV Q12 LANDON Last Admin: 12/24/17 21:05 Dose: 200 mls/hr Ibuprofen (Motrin) 600 mg PO Q6H PRN PRN PRN Reason: MILD PAIN (1-3/10) Last Admin: 12/25/17 05:35 Dose: 600 mg Morphine Sulfate (Morphine) 1 mg IV Q4H PRN PRN PRN Reason: SEVERE PAIN (6-10/10) Ondansetron HCl (Zofran) 4 mg IV Q6H PRN PRN PRN Reason: NAUSEA/VOMITING Sodium Chloride () 5 - 30 ml IV UD PRN PRN Reason: SALINE FLUSH Assessment/Plan Active and Suspected Problems Bacteremia due to Gram-negative bacteria (Acute) Sepsis (Acute) Acute cystitis (Acute) 1. UTI and pyelonephritis . Patient feels much better. He complains of mild lower abdominal pain but had no tenderness on examination. Fever has resolved and temperature is down to 19.5 this morning. tachycardia Has resolved and heart rate is down to 69. WBCs 3.6. On IV ciprofloxacin. Cultures grew E. coli 1 out of 2 samples. Urine culture grew E. coli. Repeat blood cultures pending. Sensitivity of E. coli still pending. Will continue IV ciprofloxacin pending sensitivity results. Will modify antibiotics based on sensitivity results. ID on board. Per ID, if urine E. coli sensitive to ciprofloxacin, will continue p.o. ciprofloxacin until January 06. 2. DVT prophylaxis: heparin This note was generated with Silkation software. It may contain incorrect words, spelling, and punctuation that were not noted in checking the note before signing. Code Visit Inpatient E&M: 27758 Subs Hosp L2
--- NOTE | 2017-12-25 10:17 | PN_ITS ---
Patient Problems: Active and Suspected Problems Bacteremia due to Gram-negative bacteria (Acute) Sepsis (Acute) Acute cystitis (Acute) Subjective: Seen and examined. He feels better today. Since of mild lower abdominal pain which he reason about 3/10. Fever has resolved and back pain is also resolved. Urinary symptoms have resolved and he denies any frequency of micturition now. Review of systems otherwise negative. Objective: For 7-year-old male who was admitted on December 23 with a 1 day history of urinary frequency, dysuria, nausea, back pain and fever and chills. He did not have any prior history of UTI or kidney stones. He is being managed for UTI and pyelonephritis and is on ciprofloxacin. ID is on board. Vitals/I&O's: Vital Signs Temp Pulse Resp BP Pulse Ox 98.5 F 69 16 117/82 H 98 12/25/17 08:20 12/25/17 08:20 12/25/17 08:20 12/25/17 08:20 12/25/17 08:20 Oxygen Delivery Method Room Air Weight: 163 lb 9.328 oz Body Mass Index (BMI) 20.4 Intake and Output for Last 24 Hours 12/23/17 12/24/17 12/25/17 23:59 23:59 23:59 Intake Total 6172 / 6172 1398 / 1398 Output Total 2250 / 2250 600 / 600 Balance 3922 / 3922 798 / 798 General: Alert, Oriented x3, Cooperative, No apparent distress HEENT: Atraumatic, PERRLA, EOMI, Normocephalic Oral: Moist Mucosa Neck: Supple, No JVD, Negative Carotid Bruits Lungs: Clear to auscultation, Normal air movement, No rhonchi, No wheeze, No rales Cardiovascular: Regular rate, Regular Rhythm, Normal S1, Normal S2, No murmurs Abdomen: Bowel Sounds Present, Soft, Non Tender, Non-Distended, - - No costoVertebral angle tenderness bilaterally. Had no lower abdominal tenderness on examination. Extremities: No clubbing, No cyanosis, No edema, Capillary Refill Less than 3 Seconds Skin: No rashes, No breakdown Musculoskeletal: No Tenderness to Palpation of Joints or Extremities Lymphatic: No Cervical, Supraclavicular, or Inguinal Adenopathy Neurological: Cranial nerves II-XII grossly intact, Motor Exam 5/5 strength throughout Psych/Mental Status: Normal Affect, Appropriate, Alert and oriented to time, place, person, mood and affect Laboratory Results 12/25/17 07:10: WBC 3.6 L, RBC 4.31 L, Hgb 12.0 L, Hct 37.3 L, MCV 86.5, MCH 27.8, MCHC 32.2, RDW 13.5, RDW Differential 42.9, Plt Count 86 L, MPV 12.1 H, Immature Gran % (Auto) 0.300, Neut % (Auto) 76.7 H, Lymph % (Auto) 10.9 L, [place] % (Auto) 9.8, Eos % (Auto) 2.0, Baso % (Auto) 0.3, Absolute Neuts (auto) 2.7, Absolute Lymphs (auto) 0.39 L, Total Counted Not Reportable, Differential Comment SCANNED 12/25/17 07:10: Sodium 139, Potassium 3.5, Chloride 107, Carbon Dioxide 24.0, Anion Gap 8, BUN 6 L, Creatinine 0.61 L, Estim Creat Clear Calc 153.74, Est GFR (MDRD) Af Amer 182, Est GFR (MDRD) Non-Af 150, BUN/Creatinine Ratio 9.9 L, Glucose 149 H, Calcium 7.7 L, Total Bilirubin 0.50, AST 16, ALT 27, Alkaline Phosphatase 54, Total Protein 5.6 L, Albumin 2.5 L, Globulin 3.1, Albumin/ Globulin Ratio 0.8 L Current Medications Acetaminophen (Tylenol) 650 mg PO Q6H PRN PRN PRN Reason: Fever, headache, pain Last Admin: 12/24/17 17:11 Dose: 650 mg Sodium Chloride () 1,000 mls @ 100 mls/hr IV .Q10H LANDON Last Admin: 12/25/17 01:26 Dose: 100 mls/hr Ciprofloxacin (Cipro) 400 mg in 200 mls @ 200 mls/hr IV Q12 LANDON Last Admin: 12/24/17 21:05 Dose: 200 mls/hr Ibuprofen (Motrin) 600 mg PO Q6H PRN PRN PRN Reason: MILD PAIN (1-3/10) Last Admin: 12/25/17 05:35 Dose: 600 mg Morphine Sulfate (Morphine) 1 mg IV Q4H PRN PRN PRN Reason: SEVERE PAIN (6-10/10) Ondansetron HCl (Zofran) 4 mg IV Q6H PRN PRN PRN Reason: NAUSEA/VOMITING Sodium Chloride () 5 - 30 ml IV UD PRN PRN Reason: SALINE FLUSH Assessment/Plan Active and Suspected Problems Bacteremia due to Gram-negative bacteria (Acute) Sepsis (Acute) Acute cystitis (Acute) 1. UTI and pyelonephritis * . Patient feels much better. He complains of mild lower abdominal pain but had no tenderness on examination. Fever has resolved and temperature is down to 19.5 this morning. * tachycardia Has resolved and heart rate is down to 69. * WBCs 3.6. * On IV ciprofloxacin. Cultures grew E. coli 1 out of 2 samples. Urine culture grew E. coli. Repeat blood cultures pending. Sensitivity of E. coli still pending. * Will continue IV ciprofloxacin pending sensitivity results. Will modify antibiotics based on sensitivity results. ID on board. Per ID, if urine E. coli sensitive to ciprofloxacin, will continue p.o. ciprofloxacin until January 06. * 2. DVT prophylaxis: heparin This note was generated with Appydrinkation software. It may contain incorrect words, spelling, and punctuation that were not noted in checking the note before signing. Code Visit Inpatient E&M: 55926 Subs Hosp L2
[2017-12-25] MEDS: Ciprofloxacin 400 MG/200 ML BAG 200 MG IV ×2 (10:18→21:06)
[2017-12-26] MEDS: 0.9% Normal Saline 1,000 ML 100 ML IV (00:50)
[2017-12-26 01:45] VITALS: BP 129/70; PULSE 86; RESP 16; TEMP 37.2; O2SAT 96
[2017-12-26 02:59] VITALS: PULSE 74
[2017-12-26 06:48] LABS: Absolute Lymphocyte Count 0.69 X10^3/ul (0.83-4.51); Absolute Neutrophil Count 1.7 X10^3/uL (2.0-7.7); Basophil# 0.02 X10^3/uL; Basophil% 0.7 % (0-1); Eosinophil# 0.05 X10^3/uL; Eosinophils% 1.8 % (0-5); Hematocrit 39.1 % (40-54); Hemoglobin 12.7 g/dl (13.0-16.5); Lymphocyte # 0.69 X10^3/ul (4.0); Lymphocyte % 24.4 % (19-41); Mean Corp Hgb Conc 32.5 g/gl (32-36); Mean Corpuscular Hgb 28.1 pg (27.0-32.0); Mean Corpuscular Volume 86.5 fL (80-94); Monocyte# 0.41 X10^3/uL; Monocyte% 14.5 % (0-10); Neutrophil # 1.65 X10^3/uL (2.7-7.7); Neutrophil % 58.2 % (47-70); Platelet Count 110 K/mm3 (150-450); RBC Distribution Width CV 13.5 % (11.6-14.6); RBC Distribution Width SD 41.7 fl (35.1-43.9); Red Blood Count 4.52 M/mm3 (4.6-6.2); White Blood Count 2.8 K/mm3 (4.4-11.0)
[2017-12-26 06:50] LABS: POSITIVE COUNT NO; POSITIVE DIFFERENTIAL NO; POSITIVE MORPHOLOGY NO
[2017-12-26 07:15] LABS: Anion Gap 7 (5-15); BUN 6 mg/dL (7-18); BUN/Creat Ratio 10.6 RATIO (10-20); Calcium,Total 7.9 mg/dL (8.5-10.1); Chloride 110 mmol/L (98-107); Creatinine, Serum 0.56 mg/dL (0.70-1.30); EST Glomerular Filtration Rate 163 mL/min (>60); Est Glom Filt Rate - Afr Amer 197 mL/min (>60); Estimated Creatinine Clearance 167.47 ml/min; Glucose 89 mg/dL (74-106); Potassium 3.7 mmol/L (3.5-5.1); Sodium Level 143 mmol/L (136-145)
[2017-12-26 07:24] VITALS: BP 136/88; PULSE 72; RESP 18; TEMP 36.9; O2SAT 99
[2017-12-26 07:35] VITALS: PULSE 85
--- NOTE | 2017-12-26 09:46 | PCM.PN.HOSP ---
Patient Problems: Active and Suspected Problems Bacteremia due to Gram-negative bacteria (Acute) Sepsis (Acute) Acute cystitis (Acute) Subjective: Patient seen and examined today. He has no complaints whatsoever today. Lower abdominal pain has resolved. He denies any urinary symptoms such as frequency of urination and dysuria. He denies any fever or chills as well. He has a good appetite. is by his bedside and expressed concern about patient's diarrhea, patient states diarrhea has resolved in its not a problem now. Review of systems otherwise negative. Objective: 47-year-old male who was admitted on December 23 with a 1 day history of urinary frequency, dysuria, nausea, back pain and fever and chills. He did not have any prior history of UTI or kidney stones. He is being managed for UTI and pyelonephritis and is on ciprofloxacin. ID is on board. Urine culture and blood culture grew E. coli which is sensitive to ciprofloxacin. Per ID recommendations, this patient has remained stable will DC home today on p.o. ciprofloxacin until January 06, 2018. Vitals/I&O's: Vital Signs Temp Pulse Resp BP Pulse Ox 98.4 F 85 18 136/88 H 99 12/26/17 07:24 12/26/17 07:35 12/26/17 07:24 12/26/17 07:24 12/26/17 07:24 Oxygen Delivery Method Room Air Weight: 163 lb 9.328 oz Body Mass Index (BMI) 20.4 Intake and Output for Last 24 Hours 12/24/17 12/25/17 12/26/17 23:59 23:59 23:59 Intake Total 6172 / 6172 3103 / 3103 1070 / 1070 Output Total 2250 / 2250 600 / 600 940 / 940 Balance 3922 / 3922 2503 / 2503 130 / 130 General: Alert, Oriented x3, Cooperative, No apparent distress HEENT: Atraumatic, PERRLA, EOMI, Normocephalic Oral: Moist Mucosa Neck: Supple, No JVD, Negative Carotid Bruits Lungs: Clear to auscultation, Normal air movement, No rhonchi, No wheeze, No rales Cardiovascular: Regular rate, Regular Rhythm, Normal S1, Normal S2, No murmurs Abdomen: Bowel Sounds Present, Soft, Non Tender, Non-Distended, No Hepato-splenomegaly Extremities: No clubbing, No cyanosis, No edema, Capillary Refill Less than 3 Seconds Skin: No rashes, No breakdown Musculoskeletal: No Tenderness to Palpation of Joints or Extremities Lymphatic: No Cervical, Supraclavicular, or Inguinal Adenopathy Neurological: Cranial nerves II-XII grossly intact Psych/Mental Status: Normal Affect, Appropriate, Alert and oriented to time, place, person, mood and affect Laboratory Results 12/26/17 06:01: WBC 2.8 L, RBC 4.52 L, Hgb 12.7 L, Hct 39.1 L, MCV 86.5, MCH 28.1, MCHC 32.5, RDW 13.5, RDW Differential 41.7, Plt Count 110 L, MPV 12.0, Immature Gran % (Auto) 0.400, Neut % (Auto) 58.2, Lymph % (Auto) 24.4, [place] % (Auto) 14.5 H, Eos % (Auto) 1.8, Baso % (Auto) 0.7, Absolute Neuts (auto) 1.7 L, Absolute Lymphs (auto) 0.69 L, Total Counted Not Reportable 12/26/17 06:01: Sodium 143, Potassium 3.7, Chloride 110 H, Carbon Dioxide 26.0, Anion Gap 7, BUN 6 L, Creatinine 0.56 L, Estim Creat Clear Calc 167.47, Est GFR (MDRD) Af Amer 197, Est GFR (MDRD) Non-Af 163, BUN/Creatinine Ratio 10.6, Glucose 89, Calcium 7.9 L Current Medications Acetaminophen (Tylenol) 650 mg PO Q6H PRN PRN PRN Reason: Fever, headache, pain Last Admin: 12/24/17 17:11 Dose: 650 mg Sodium Chloride () 1,000 mls @ 100 mls/hr IV .Q10H LANDON Last Admin: 12/26/17 00:50 Dose: 100 mls/hr Ciprofloxacin (Cipro) 400 mg in 200 mls @ 200 mls/hr IV Q12 L[place]ON Last Admin: 12/25/17 21:06 Dose: 200 mls/hr Ibuprofen (Motrin) 600 mg PO Q6H PRN PRN PRN Reason: MILD PAIN (1-3/10) Last Admin: 12/25/17 11:49 Dose: 600 mg Morphine Sulfate (Morphine) 1 mg IV Q4H PRN PRN PRN Reason: SEVERE PAIN (6-10/10) Ondansetron HCl (Zofran) 4 mg IV Q6H PRN PRN PRN Reason: NAUSEA/VOMITING Sodium Chloride () 5 - 30 ml IV UD PRN PRN Reason: SALINE FLUSH Assessment/Plan Active and Suspected Problems Bacteremia due to Gram-negative bacteria (Acute) Sepsis (Acute) Acute cystitis (Acute) 1. UTI and pyelonephritis Solving. Patient feels much better and has no complaints this morning. Urine culture and blood culture grew E. coli which is sensitive to ciprofloxacin. Currently on IV ciprofloxacin. Will DC home on p.o. ciprofloxacin until January 06 per ID recommendations. Follow-up with PCP and ID on outpatient basis. 2. DVT prophylaxis: Heparin. This note was generated with iNeoMarketingation software. It may contain incorrect words, spelling, and punctuation that were not noted in checking the note before signing. Code Visit Inpatient E&M: [id number] Subs Hosp L2
--- NOTE | 2017-12-26 09:50 | PN_ITS ---
Patient Problems: Active and Suspected Problems Bacteremia due to Gram-negative bacteria (Acute) Sepsis (Acute) Acute cystitis (Acute) Subjective: Patient seen and examined today. He has no complaints whatsoever today. Lower abdominal pain has resolved. He denies any urinary symptoms such as frequency of urination and dysuria. He denies any fever or chills as well. He has a good appetite. is by his bedside and expressed concern about patient's diarrhea, patient states diarrhea has resolved in its not a problem now. Review of systems otherwise negative. Objective: 47-year-old male who was admitted on December 23 with a 1 day history of urinary frequency, dysuria, nausea, back pain and fever and chills. He did not have any prior history of UTI or kidney stones. He is being managed for UTI and pyelonephritis and is on ciprofloxacin. ID is on board. Urine culture and blood culture grew E. coli which is sensitive to ciprofloxacin. Per ID recommendations, this patient has remained stable will DC home today on p.o. ciprofloxacin until January 06, 2018. Vitals/I&O's: Vital Signs Temp Pulse Resp BP Pulse Ox 98.4 F 85 18 136/88 H 99 12/26/17 07:24 12/26/17 07:35 12/26/17 07:24 12/26/17 07:24 12/26/17 07:24 Oxygen Delivery Method Room Air Weight: 163 lb 9.328 oz Body Mass Index (BMI) 20.4 Intake and Output for Last 24 Hours 12/24/17 12/25/17 12/26/17 23:59 23:59 23:59 Intake Total 6172 / 6172 3103 / 3103 1070 / 1070 Output Total 2250 / 2250 600 / 600 940 / 940 Balance 3922 / 3922 2503 / 2503 130 / 130 General: Alert, Oriented x3, Cooperative, No apparent distress HEENT: Atraumatic, PERRLA, EOMI, Normocephalic Oral: Moist Mucosa Neck: Supple, No JVD, Negative Carotid Bruits Lungs: Clear to auscultation, Normal air movement, No rhonchi, No wheeze, No rales Cardiovascular: Regular rate, Regular Rhythm, Normal S1, Normal S2, No murmurs Abdomen: Bowel Sounds Present, Soft, Non Tender, Non-Distended, No Hepato- splenomegaly Extremities: No clubbing, No cyanosis, No edema, Capillary Refill Less than 3 Seconds Skin: No rashes, No breakdown Musculoskeletal: No Tenderness to Palpation of Joints or Extremities Lymphatic: No Cervical, Supraclavicular, or Inguinal Adenopathy Neurological: Cranial nerves II-XII grossly intact Psych/Mental Status: Normal Affect, Appropriate, Alert and oriented to time, place, person, mood and affect Laboratory Results 12/26/17 06:01: WBC 2.8 L, RBC 4.52 L, Hgb 12.7 L, Hct 39.1 L, MCV 86.5, MCH 28.1, MCHC 32.5, RDW 13.5, RDW Differential 41.7, Plt Count 110 L, MPV 12.0, Immature Gran % (Auto) 0.400, Neut % (Auto) 58.2, Lymph % (Auto) 24.4, [place] % ( Auto) 14.5 H, Eos % (Auto) 1.8, Baso % (Auto) 0.7, Absolute Neuts (auto) 1.7 L, Absolute Lymphs (auto) 0.69 L, Total Counted Not Reportable 12/26/17 06:01: Sodium 143, Potassium 3.7, Chloride 110 H, Carbon Dioxide 26.0, Anion Gap 7, BUN 6 L, Creatinine 0.56 L, Estim Creat Clear Calc 167.47, Est GFR (MDRD) Af Amer 197, Est GFR (MDRD) Non-Af 163, BUN/Creatinine Ratio 10.6, Glucose 89, Calcium 7.9 L Current Medications Acetaminophen (Tylenol) 650 mg PO Q6H PRN PRN PRN Reason: Fever, headache, pain Last Admin: 12/24/17 17:11 Dose: 650 mg Sodium Chloride () 1,000 mls @ 100 mls/hr IV .Q10H L[place]ON Last Admin: 12/26/17 00:50 Dose: 100 mls/hr Ciprofloxacin (Cipro) 400 mg in 200 mls @ 200 mls/hr IV Q12 L[place]ON Last Admin: 12/25/17 21:06 Dose: 200 mls/hr Ibuprofen (Motrin) 600 mg PO Q6H PRN PRN PRN Reason: MILD PAIN (1-3/10) Last Admin: 12/25/17 11:49 Dose: 600 mg Morphine Sulfate (Morphine) 1 mg IV Q4H PRN PRN PRN Reason: SEVERE PAIN (6-10/10) Ondansetron HCl (Zofran) 4 mg IV Q6H PRN PRN PRN Reason: NAUSEA/VOMITING Sodium Chloride () 5 - 30 ml IV UD PRN PRN Reason: SALINE FLUSH Assessment/Plan Active and Suspected Problems Bacteremia due to Gram-negative bacteria (Acute) Sepsis (Acute) Acute cystitis (Acute) 1. UTI and pyelonephritis * Solving. Patient feels much better and has no complaints this morning. * Urine culture and blood culture grew E. coli which is sensitive to ciprofloxacin. * Currently on IV ciprofloxacin. Will DC home on p.o. ciprofloxacin until January 06 per ID recommendations. * Follow-up with PCP and ID on outpatient basis. * 2. DVT prophylaxis: Heparin. This note was generated with PlayFilmation software. It may contain incorrect words, spelling, and punctuation that were not noted in checking the note before signing. Code Visit Inpatient E&M: [id number] Subs Hosp L2
--- NOTE | 2017-12-26 09:56 | DCINST_ITS ---
- Discharge Diagnoses Current Active Problems: Current Active and Chronic Problems Bacteremia due to Gram-negative bacteria (Acute) Sepsis (Acute) Acute cystitis (Acute) Reason(s) for Visit for Discharge Instructions: pyelonephritis, UTI You will use the following diet at home:: No restrictions Your food should be the consistency of: Regular Discharge Activity: Return to Normal Activity May resume sexual activity in: No Restrictions Weight Bearing Status: Weight bearing as tolerated Call your doctor if you observe: Fever of 101 or Higher, - - pain with urination , frequency of urination Allergies/Adverse Reactions: Allergies No Known Allergies Allergy (Verified 12/23/17 03:50) Medications to take at Discharge Ciprofloxacin [Cipro] 500 mg PO BID #24 tab 12/26/17 The following prescriptions were given: Ciprofloxacin [Cipro] 500 mg PO BID #24 tab Primary Care Physician: Kai Sherman MD [Primary Care Provider] - Please follow up with your Primary Care Physician in: one week Please Follow Up With: Duane Mancini MD When: in two weeks
--- NOTE | 2017-12-26 09:57 | PCM.DC.SUM ---
Discharge Date and Diagnosis - Problem List Patient Problems: Active and Suspected Problems Bacteremia due to Gram-negative bacteria (Acute) Sepsis (Acute) Acute cystitis (Acute) Date of Admission: 12/23/17 Date of Discharge: 12/26/17 - Primary Discharge Diagnosis Active and Suspected Problems Bacteremia due to Gram-negative bacteria (Acute) Sepsis (Acute) Acute cystitis (Acute) Hospital Course and Treatment infectious disease Operations: None Procedures: None Summary of Care Provided: The patient is a 47 year old M [with no significant past medical history who was admitted on December 23, 2017 with a complaint of 1 day history of urinary frequency, dysuria, nausea, back pain as well as fever chills and shakes. He had no no history of UTI or kidney stones. On admission, he was noted to have a fever of up to about 103.5. He was also tachycardic and tachypneic. Initial blood work was unremarkable urinalysis revealed cloudy UA which was positive for leukocyte esterase with 25-50 white blood cells and no bacteria seen. CT abdomen and pelvis without contrast showed a left kidney cyst, with no stones and no hydronephrosis and a normal right kidney and no other acute intra-abdominal pathology. He was admitted and initially managed for sepsis due to acute cystitis and possible pyelonephritis. He was started on IV ciprofloxacin. Infectious diseases was consulted and recommended continuing IV ciprofloxacin and to switch to p.o. ciprofloxacin based on sensitivity results of blood and urine cultures. Urine with culture E. coli sensitive to ciprofloxacin. Patient remained stable, symptoms such as fever and chills dysuria nausea and vomiting all resolved. Home medications were reviewed and reconciled. Patient was discharged home on December 26, 2017 on p.o. ciprofloxacin 500 mg twice daily and per ID recommendations he is to take the antibiotics until January 06, 2018. He is to follow-up with his primary care physician and infectious disease [employer] consultant in a week. Discharge Activity: Return to Normal Activity May resume sexual activity in: No Restrictions Weight Bearing Status: Weight bearing as tolerated Call your doctor if you observe: Fever of 101 or Higher, - - pain with urination, frequency of urination Home Medications: Medications to take at Discharge Ciprofloxacin [Cipro] 500 mg PO BID #24 tab 12/26/17 Following Prescrptions Were Given to Patient: Ciprofloxacin [Cipro] 500 mg PO BID #24 tab Primary Care Physician: Kai Sherman MD [Primary Care Provider] - Please follow up with your Primary Care Physician in: one week Please Follow Up With: Duane Mancini MD When: in two weeks Disposition: Home Minutes spent on discharge:: 25 Patient Condition:: Good Meaningful Use Info Meaningful Use Diagnoses (Choose all that apply): None applicable Code Visit Inpatient E&M: 37266 Disch Hosp
--- NOTE | 2017-12-26 10:01 | DS.PCM_ITS ---
Discharge Date and Diagnosis - Problem List Patient Problems: Active and Suspected Problems Bacteremia due to Gram-negative bacteria (Acute) Sepsis (Acute) Acute cystitis (Acute) Date of Admission: 12/23/17 Date of Discharge: 12/26/17 - Primary Discharge Diagnosis Active and Suspected Problems Bacteremia due to Gram-negative bacteria (Acute) Sepsis (Acute) Acute cystitis (Acute) Hospital Course and Treatment infectious disease Operations: None Procedures: None Summary of Care Provided: The patient is a 47 year old M [with no significant past medical history who was admitted on December 23, 2017 with a complaint of 1 day history of urinary frequency, dysuria, nausea, back pain as well as fever chills and shakes. He had no no history of UTI or kidney stones. On admission, he was noted to have a fever of up to about 103.5. He was also tachycardic and tachypneic. Initial blood work was unremarkable urinalysis revealed cloudy UA which was positive for leukocyte esterase with 25-50 white blood cells and no bacteria seen. CT abdomen and pelvis without contrast showed a left kidney cyst, with no stones and no hydronephrosis and a normal right kidney and no other acute intra- abdominal pathology. He was admitted and initially managed for sepsis due to acute cystitis and possible pyelonephritis. He was started on IV ciprofloxacin. Infectious diseases was consulted and recommended continuing IV ciprofloxacin and to switch to p.o. ciprofloxacin based on sensitivity results of blood and urine cultures. Urine with culture E. coli sensitive to ciprofloxacin. Patient remained stable, symptoms such as fever and chills dysuria nausea and vomiting all resolved. Home medications were reviewed and reconciled. Patient was discharged home on December 26, 2017 on p.o. ciprofloxacin 500 mg twice daily and per ID recommendations he is to take the antibiotics until January 06, 2018. He is to follow-up with his primary care physician and infectious disease clinical documentation consultant in a week. Discharge Activity: Return to Normal Activity May resume sexual activity in: No Restrictions Weight Bearing Status: Weight bearing as tolerated Call your doctor if you observe: Fever of 101 or Higher, - - pain with urination , frequency of urination Home Medications: Medications to take at Discharge Ciprofloxacin [Cipro] 500 mg PO BID #24 tab 12/26/17 Following Prescrptions Were Given to Patient: Ciprofloxacin [Cipro] 500 mg PO BID #24 tab Primary Care Physician: Kai Sherman MD [Primary Care Provider] - Please follow up with your Primary Care Physician in: one week Please Follow Up With: Duane Mancini MD When: in two weeks Disposition: Home Minutes spent on discharge:: 25 Patient Condition:: Good Meaningful Use Info Meaningful Use Diagnoses (Choose all that apply): None applicable Code Visit Inpatient E&M: 40244 Disch Hosp
[2017-12-26] MEDS: Ciprofloxacin 400 MG/200 ML BAG 200 MG IV (10:08)
[2017-12-26 11:54] VITALS: BP 138/91; PULSE 77; RESP 18; TEMP 36.8; O2SAT 100
== END 2017-12-26 12:00 | disposition home or self-care (01) | DRG 872 ==
LOC: ED 04:38 → MS2 05:59
PROVIDERS: Admitting Provider Hospitalist; Emergency Provider Emergency Medicine; Family Provider Internal Medicine; PCP Family Medicine; Visit Provider Student in an Organized Health Care Education/Training Program
DX: A41.51 Sepsis due to Escherichia coli [E. coli] (principal); N30.00 Acute cystitis without hematuria; B96.20 Unspecified Escherichia coli [E. coli] as the cause of diseases classified elsewhere
CPT/HCPCS: 36415; 74176; 80048; 80053; 81001; 83605; 85025; 87040; 87077; 87086; 87088; 87186; 97802; 99284; J7030; J0744

== ENCOUNTER 2023-07-31 11:03 | Emergency (ER) | payer OTHER, SELFPAY ==
[2023-07-31 11:05] VITALS: BP 158/93; PULSE 64; RESP 12; TEMP 36.1; O2SAT 100; BMI 20.7
--- NOTE | 2023-07-31 11:28 | EX.ED.DYSGE1 ---
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 He was seen in urgent care and was sent here for a DVT study. [facility] Home Medications ciprofloxacin HCl 500 mg tablet 500 mg PO BID #24 tabs 12/26/17 [Rx Last Taken Unknown] Allergy/AdvReac Type Severity Reaction Status Date / Time No Known Allergies Allergy Verified 07/31/23 11:05 Social History Smoking Status: Never smoker ROS ROS ED ROS Narrative Past medical history: none Medications: Reviewed Social history: Noncontributory Review of systems: Musculoskeletal: Left knee pain as in HPI Skin: No abrasions or lacerations Neurological: No weakness or paresthesias Hematologic: No easy bleeding or easy bruising EXAM Physical Exam Narrative Exam Narrative: Physical exam General: Patient does not appear in significant distress . Head: Normocephalic, Atraumatic Neck: No C-spine tenderness Cardiovascular: Normal distal pulses Back: Nontender, Normal Inspection. Extremities: Left knee has prepatellar bursitis. There is no erythema or calor. The knee joint is not involved there is no pain to range of motion. Very slight lower extremity edema no calf pain. No signs of infection. Skin: No abrasions, no lacerations Neurological: Normal strength and sensation Const Vital Signs: 07/31/23 11:05 07/31/23 11:28 Temperature 96.9 F L Temperature Source Temporal Pulse Rate 64 Respiratory Rate 12 Respiratory Effort Normal Respiratory Pattern Normal Blood Pressure 158/93 H Blood Pressure Mean 114 Pulse Ox 100 Oxygen Delivery Method Room Air MDM MDM MDM Narrative Medical decision making narrative: Patient has prepatellar bursitis from overuse. At this time even though he was sent here for a DVT study I do not believe the patient has a DVT. He has an obvious diagnosis, I had a long discussion with him and his would not give me history, I reassured him that this is highly unlikely to be a DVT. He is okay with not getting an ultrasound. If anything changes he is to return. In the meantime I did offer drainage and steroid injection in the prepatellar bursa, he does not have any pain and does not believe he needs it or wants it. I will refer to orthopedics otherwise I will discharge him in stable condition I warned him about overuse, I told him to use kneepads if he has to be on his knees for long periods of time. Discharge Plan Triage Chief Complaint: Edema ED Provider: Eddi Johns Dx/Rx/DC Orders Clinical Impression: Acute knee pain, Bursitis, prepatellar, left Instructions: ED Bursitis Prescriptions: No Action ciprofloxacin HCl 500 MG tablet 500 mg PO BID Qty: 24 0RF Rx Instructions: stop date is January 06 2018. Primary Care Provider: Kai Sherman Referrals: aKi Sherman MD [Primary Care Provider] - Henry Hoang DO [Med Staff - Active Staff] - 3-5 Days Disposition Disposition: Home, Self Care
== END 2023-07-31 12:09 | disposition home or self-care (01) ==
LOC: ED 11:46
PROVIDERS: Emergency Provider Emergency Medicine; PCP Family Medicine; Visit Provider Emergency Medicine
DX: M25.562 Pain in left knee (principal); M70.52 Other bursitis of knee, left knee
CPT/HCPCS: 99282